=== PATIENT | female | born 2000 | race African-American/Black ===

== ENCOUNTER 2024-05-29 14:32 | Emergency (ER) | payer SELFPAY ==
[~2024-05-29] VITALS: Ht 170.2 cm; Wt 65.0 kg
[2024-05-29 14:58] VITALS: BP 135/74; PULSE 111; RESP 16; TEMP 36.7; O2SAT 99
[2024-05-29] MEDS: KETOROLAC 15MG/ML VIAL IM ONE (15:52)
[2024-05-29 15:58] LABS: CLARITY URINE CLOUDY (CLEAR); COLOR URINE YELLOW (YELLOW); GLUCOSE URINE NEGATIVE (NEGATIVE); KETONES URINE NEGATIVE (NEGATIVE); LEUKOCYTE ESTERASE URINE 1+ (NEGATIVE); NITRITE URINE NEGATIVE (NEGATIVE); OCCULT BLOOD URINE NEGATIVE (NEGATIVE); PH URINE 5.5 (4.5-8.0); PROTEIN URINE NEGATIVE (NEGATIVE); SPECIFIC GRAVITY URINE 1.013 (1.005-1.030); UROBILINOGEN URINE 0.2 E.U./dL (0.2-1.0)
[2024-05-29 16:25] LABS: BACTERIA URINE 2+; RBC URINE 0-2 /hpf (0-2); SQUAMOUS EPITHELIAL CELL URINE 2+ /lpf (RARE/1+)
[2024-05-29] MEDS ORDERED: CEPH500C2 PO (16:35)
== END 2024-05-29 16:56 | disposition home or self-care (01) ==
LOC: ER 14:32
DX: N39.0 Urinary tract infection, site not specified (principal); M54.50 Low back pain, unspecified
CPT/HCPCS: 99283; 81003; 81025; 96372; J1885